=== PATIENT | female | born 1995 | race Two or more races ===

== ENCOUNTER 2019-02-24 10:22 | Emergency (ER) | payer SELFPAY ==
[~2019-02-24] VITALS: Ht 160 cm; Wt 47.6 kg
[2019-02-24 11:42] VITALS: BP 154/73
[2019-02-24] MEDS ORDERED: ACETAMINOPHEN 325 MG TAB PO ONE (12:00)
== END 2019-02-24 13:52 | disposition home or self-care (01) ==
LOC: ER 10:22
DX: N83.209 Unspecified ovarian cyst, unspecified side (principal)
CPT/HCPCS: 76830; 76856